=== PATIENT | female | born 1975 | race Caucasian/White ===

== ENCOUNTER 2017-03-27 07:41 | Emergency (ER) | payer OTHER ==
--- NOTE | 2017-03-27 11:00 | ED CLINICAL REPORT ---
Clinical Report - Physicians/Mid Levels [facility] [address] [place] [address] 03/27/2017 7:43 Patient: CASSANDRA MATAMOROS Time Seen: 08:14; initial patient contact. Arrived- By private vehicle. Historian- patient. HISTORY OF PRESENT ILLNESS Chief Complaint: SKIN RASH. This started about 2 days ago and is still present. It was gradual in onset and has been constant. Not itchy. It is described as painful and burning. It has been located on the left leg and ankle. No cause has been identified. She had a recent insect bite. No recent medication. Was not recently exposed to poison primitivo. Similar symptoms previously: None. Recent medical care: Not recently seen/assessed. REVIEW OF SYSTEMS Last normal menstrual period now. No fever, chills, cough, difficulty breathing or nausea. No vomiting, chills, fever, sweats or abdominal pain. No constipation, diarrhea, nausea, vomiting or urinary problems. All systems otherwise negative, except as recorded above. PAST HISTORY Dental Abscess. Dental Pain. Immunizations. Multiple Sclerosis. Muscle Spasm. Fibromyalgia. Vomiting. Migraine Headache. Asthma. Bursitis. SURGERIES: . Eye. Tonsillectomy & Adenoidectomy. Tubal Ligation. SOCIAL HISTORY Current every day smoker. No alcohol use or drug use. FAMILY HISTORY she has family members who have had MRSA. ADDITIONAL NOTES The nursing notes have been reviewed. PHYSICAL EXAM Vital Signs: 03/27/2017 08:11 BP: 151/107. HR: 90. RR: 18. O2 saturation: 100%. Temp: 98.3 F. Pain level now: 1010. Have been reviewed. Hypertensive. Heart rate normal. Respiratory rate normal. Temperature normal. Oxygen saturation normal. Appearance: Alert. Oriented X3. No acute distress. ENT: Pharynx normal. CVS: Normal heart rate and rhythm. Heart sounds normal. Respiratory: No respiratory distress. Breath sounds normal. Skin: Medium area of cellulitis with tenderness, erythema and warmth. (2 lateral left lower extremity insect bites). Extremities: 2+ pitting edema of the left lower extremity involving the lower leg. Neuro: Oriented X 3. LABS, X-RAYS, AND EKG Laboratory Tests: UA-Culture if indicated: (PRACHI: 03/27/2017 09:45) ( [facility] 03/27/2017 10:09) Final results Test Result Flag Units (Reference) URINE COLOR YELLOW URINE APPEARANCE CLEAR URINE GLUCOSE NEGATIVE (NEGATIVE) URINE BILIRUBIN NEGATIVE (NEGATIVE) URINE KETONE NEGATIVE (NEGATIVE) URINE SPECIFIC GRAVITY 1.020 (1.010-1.030) URINE PH 6.0 (5.0-8.0) URINE PROTEIN NEGATIVE (NEGATIVE) URINE UROBILINOGEN 0.2 EU/dL (0.2-1.0) URINE NITRITE NEGATIVE (NEGATIVE) URINE BLOOD 3+ (NEGATIVE) URINE LEUK ESTERASE NEGATIVE (NEGATIVE) URINE RBC 10-25 rbc/hpf (0-1) URINE WBC 0-1 wbc/hpf (0-1) URINE EPITHELIAL CELLS 0-1 EPI/hpf (0-5) URINE BACTERIA TRACE (<1+) (NONE SEEN) URINE COMMENT CULT NOT INDICATED URINE CULTURES ARE SET-UP BASED ON THE FOLLOWING CRITERIA:POSITIVE NITRITEPOSITIVE LEUKOCYTE ESTERASEGREATER THAN 10 WHITE BLOOD CELLSMODERATE (2+) OR GREATER BACTERIA Urine: (PRACHI: 03/27/2017 09:45) ( [facility] 03/27/2017 09:58) Final results Test Result Flag Units (Reference) URINE NEGATIVE CBC w Diff: (PRACHI: 03/27/2017 10:05) ( [facility] 03/27/2017 10:23) Final results Test Result Flag Units (Reference) WHITE BLOOD COUNT 9.6 K/uL (4.5-11.5) RED BLOOD COUNT 4.50 M/uL (4.00-5.20) HEMOGLOBIN 12.1 gm/dL (12.0-16.0) HEMATOCRIT 36.9 % (36.0-46.0) MEAN CELL VOLUME 82 fL (80-100) MEAN CORPUSCULAR HGB 27 pg (26-34) MEAN CORPUSCULAR HGB CONC 33 g/dL (31-37) RED CELL DISTRIBUTION WIDTH 15.2 H % (11.6-14.8) PLATELET COUNT 187 K/uL (150-400) NEUTROPHIL % 55.0 % (50-75) LYMPH % 31.6 % (25-40) MONO % 6.3 % (3-14) EOSINOPHIL % 5.6 H % (0-4) BASOPHIL % 1.5 % (0-2) [id number]: (PRACHI: 03/27/2017 10:05) ( MsgRcvd 03/27/2017 10:36) Final results Test Result Flag Units (Reference) D-DIMER QUANTITATIVE 0.52 ug/mLFEU (0.27-0.52) The primary value of this quantitative assay relates toits negative predictive value (i.e. exclusion) of pulmonaryembolism/deep vein thrombosis/DIC.Elevated levels of d-dimer may also occur with:, age, cancer, inflammation, liver disease,post-op, infection, hematoma, coronary disease, peripheralarteriopathy, bleeding disorders and thrombolytic treatment.Results should be correlated with other clinical andradiological data.Testing Methodology: Latex Immunoassay Urine Drug Screen: (PRACHI: 03/27/2017 09:45) ( MsgRcvd 03/27/2017 10:08) Final results Test Result Flag Units (Reference) AMPHETAMINE/METHAMPHETAMINE POSITIVE H (NEGATIVE) BARBITURATE NEGATIVE (NEGATIVE) BENZODIAZEPINE NEGATIVE (NEGATIVE) CANNABINOID NEGATIVE (NEGATIVE) COCAINE NEGATIVE (NEGATIVE) ECSTASY POSITIVE H (NEGATIVE) METHADONE NEGATIVE (NEGATIVE) OPIATE NEGATIVE (NEGATIVE) The urine drug screen is a qualitative screening test fordrug overdose and abuse. All screen results should beconsidered as presumptive.Drugs screened for are as follows:BenzodiazepinesCocaineAmphetamines/MetamphetaminesTHC (Tetrahydrocannabinol)OpiatesBarbituratesEcstasyMethadonePositive results are unconfirmed. For confirmation, notifythe lab for the specimen to be sent to the reference lab.All confirmations must be performed by a differentmethodology.The ingestion of natural herbal and plant productscontaining Ephedra/Ephedra metabolites can produce in urineone or more substances capable of cross reacting withamphetamine/methamphetamine immunoassays. These testsprovide a preliminary result only. A more specificalternative chemical method must be used to obtain aconfirmed analytical result. BNP: (PRACHI: 03/27/2017 10:05) ( MsgRcvd 03/27/2017 10:48) Final results Test Result Flag Units (Reference) B-TYPE NATRIURETIC PEPTIDE 14.9 pg/ml (5-100) CMP: (PRACHI: 03/27/2017 10:05) ( MsgRcvd 03/27/2017 10:32) Final results Test Result Flag Units (Reference) GLUCOSE 108 mg/dL (70-110) BUN 16 mg/dL (7-18) CREATININE 0.8 mg/dL (0.6-1.3) Estimated GFR >60 mL/min Estimated GFR- >60 mL/min Note: Persistent reduction over 3 months in eGFR<60 mL/min/1.73 m2 defines CKD. Patients with eGFR values>=60 mL/min/1.73 m2 may also have CKD if evidence ofpersistent proteinuria. Additional information may be foundat www.kidney.org. SODIUM 139 mmol/L (136-145) POTASSIUM 3.7 mmol/L (3.5-5.1) CHLORIDE 105 mmol/L (98-107) CARBON DIOXIDE 24 mmol/L (21-32) CALCIUM 8.4 L mg/dL (8.5-10.1) TOTAL PROTEIN 7.1 g/dL (6.4-8.2) ALBUMIN 3.8 g/dL (3.3-5.0) BILIRUBIN, TOTAL 0.4 mg/dL (0.0-1.0) ALKALINE PHOSPHATASE 80 U/L (46-116) AST (SGOT) 16 U/L (15-37) ALT (SGPT) 23 U/L (12-78) . PROGRESS AND PROCEDURES Course of Care: Patient is stable. Patient/family counseled in person. during the review of the patient's labs with her. She did acknowledge that she "ate" some methamphetamine 2 days ago. She says that this is not a regular occurrence and that she has never had any IVDU. Old medical records ordered. Disposition: Discharged. Condition: stable. CLINICAL IMPRESSION Cellulitis of the left lower leg. Multiple mosquito bites to the left lower leg. Left. Substance abuse- methamphetamines. INSTRUCTIONS Elevate affected areas above chest level until better. Warnings: Further evaluation is necessary. GENERAL WARNINGS: Return or contact your physician immediately if your condition worsens or changes unexpectedly, if not improving as expected, or if other problems arise. Prescription Medications: Bactrim DS 800 mg / 160 mg: take 2 tablets orally every 12 hours for 10 days. No refill. Substitution is permissible. Diflucan 150 mg tablets: initially take 1 tablet orally for 1 day. No refill. Substitution is permissible. (take this after you have completed your course of trimethoprim / sulfamethoxazole) OTC Medications: Motrin (available over the counter): take according to label instructions. Understanding of the discharge instructions verbalized by patient. Follow-up with: [facility], , , [address], [facility], [id number] Follow up tomorrow. Call for an appointment. (Electronically signed by Patrice York MD 03/27/2017 17:42)
--- NOTE | 2017-03-27 11:00 | ED NURSING NOTES ---
Clinical Report - Nurses [facility] [address] [place] [address] 03/27/2017 7:43 Patient: CASSANDRA MATAMOROS TRIAGE Triage time 08:12. Acuity: LEVEL 3. Chief Complaint: SPIDER BITE and BEE STING. SEPSIS SCREEN: Sepsis Screen. Negative (no infection suspected/documented). --08:19 Jazmin Julien R.N. 08:11 03/27/17. BP: 151/107. HR: 90. RR: 18. O2 saturation: 100%. Temp: 98.3 F. Pain level now: 06/24. --08:19 Jazmin Julien R.N. Weight: 86.1 kg stated. Height/Length: 69 inches Per Patient. BMI: 28.1. --08:17 Jazmin Julien R.N. Medications Unknown. --12:28 Jazmin Julien R.N. Allergies No Known Drug Allergy. --12:28 Jazmin Julien R.N. History Arrived by private vehicle. Historian: patient. Primary physician (No PCP). 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 Location of injuries: right foot and left foot. This occurred at an unknown time. She has had redness, swelling, fever, difficulty breathing and a skin rash. She has had itching and dizziness. Treatment EMISSIONS ENGINEER: None. PAST MEDICAL HX: Tetanus status: unknown. Immunizations: status is unknown. Last normal menstrual period- currently on her period. ( States she has very heavy bleeding when menstruating and has seen large clots). SOCIAL HX: Heavy tobacco smoker- less than 1 pack per day. No alcohol use or drug use. No infectious disease exposure. SELF HARM ASSESSMENT: A self harm assessment was performed. The patient answered "no" to the question "Do you have thoughts of harming or killing yourself?". FALL RISK ASSESSMENT: Fall risk assessment completed. No fall risk identified. NUTRITIONAL RISK ASSESSMENT: The nutritional risk assessment revealed no deficiencies. FUNCTIONAL ASSESSMENT: Functional assessment: no impairments noted. LEARNING NEEDS ASSESSMENT: The learning needs assessment revealed no barriers. ABUSE ASSESSMENT: Abuse assessment: ("Yes") The patient was asked "Do you feel safe in your home?". SKIN INTEGRITY ASSESSMENT: Skin integrity risk assessment completed. No skin integrity risk identified. --08:19 Jazmin Julien R.N. PAST MEDICAL HX: ( Dad has gout and she thinks she might have it, or thinks she is maybe diabetic). --08:22 Jazmin Julien R.N. SOCIAL HX: History of drug use: marijuana. --08:23 Jazmin Julien R.N. SOCIAL HX: ( Pt now states that she has done drugs in the past but hasn't done anything other than marijuana recently). --08:24 Jazmin Julien R.N. PROBLEMS: Dental Abscess. Dental Pain. Immunizations. Multiple Sclerosis. Muscle Spasm. Fibromyalgia. Vomiting. Migraine Headache. Asthma. --08:18 Jazmin Julien R.N. Bursitis. --08:21 Jazmin Julien R.N. ADDITIONAL SURGERIES: . Eye. Tonsillectomy & Adenoidectomy. Tubal Ligation. --08:19 Jazmin Julien R.N. Interventions ID band on patient. To room. --08:19 Jazmin Julien R.N. PHYSICAL ASSESSMENT GENERAL / NEURO / PSYCH: Alert. Oriented X 4. Appears anxious. RESPIRATORY: Respirations not labored. CVS: Normal heart rate and rhythm. EXTREMITIES: Right dorsal foot. Left foot, plantar aspect: tenderness and swelling and dorsal foot: tenderness, swelling and erythema. SKIN: Skin is warm and dry. --08:21 Jazmin Julien R.N. GI / : ( She thinks she might have a parasite and wants to have her stool sampled. She examined her stool and thinks she saw something.). --08:23 Jazmin Julien R.N. NURSING PROGRESS NOTES Reassurance given. Patient identifiers checked. Bed placed in lowest position. Brakes of bed on. Patient ready for evaluation- ED physician notified. --08:24 Jazmin Juilen R.N. 08:57 03/27/2017 One (1) unsuccessful IV access attempt including the right antecubital space. Applied bandaid and manual pressure (Was able to get blood return and some blood sent to lab however the pt was screaming and moving all over stating it hurt too bad to leave in. IV removed per pt request.). --09:07 Jazmin Julien R.N. ( Pt repeating herself several times, states she has low platelets and is a very difficult IV stick. Said she had 27 IV starts during a stay in the hospital before.). --09:09 Jazmin Julien R.N. ( urine sent). --09:50 Jazmin Julien R.N. 10:15 03/27/2017 Site #1 started via IV in the right hand with an 22g angiocath, with aseptic technique and good blood return; one attempt. Blood drawn: rainbow set. Labeled in the presence of the patient and sent to the lab. Saline lock flushed with 10 mL saline. --10:15 Maribeth Frank R.N. 10:17 03/27/17. :patient confirmed. Blood samples drawn by nurse ; labeled in presence of the patient: rainbow set. --10:17 Maribeth Frank R.N. DISPOSITION / DISCHARGE 11:36 03/27/2017 Site #1 removed upon discharge. Bandaid applied. --11:36 Jazmin Julien R.N. Condition at departure: unchanged. Discharge instructions provided and reviewed with the patient. Reviewed medication(s) side effects, precautions, dosing and course information. Prescription(s) given to the patient. Reviewed need to stop smoking. Follow up contact number [facility]. Patient verbalized understanding. Written instructions provided in Sinhala. The patient was discharged by the physician endodontic assistant. She was discharged home. She left the Emergency Department ambulatory and via private vehicle. Patient driving. --11:37 Jazmin Julien R.N. 11:35 03/27/17. BP: 148/86. HR: 88. RR: 18. O2 saturation: 100%. Temp: 98.4 F. Pain level now: 06/24. --11:37 Jazmin Julien R.N. <<STRICKEN ENTRY-- Departure time: 1100. --11:37 Jazmin Julien R.N. --END STRIKE>> Correction --11:38 Jazmin Julien R.N. Departure time: 11:38. --11:38 Jazmin Julien R.N. Locked/Released at 03/27/2017 19:36 by Jazmin Julien R.N.
--- NOTE | 2017-03-27 11:00 | ED ORDER SUMMARY ---
..... Patient: CASSANDRA MATAMOROS OrderSheet [facility] VisitID: [id number] [place] [address] 41y, F Registration Date/Time: 03/27/2017 ORDER SHEET Weight: 86.1 kg (stated) Allergies: No Known Drug Allergy GENERAL ORDERS: CBC w Diff Urgent (08:03/27/2017 Arcadio Nobles) (Ack 8:33 PWeiler ER Tech1) (10:12 PWeiler ER Tech1) CMP Urgent (08:03/27/2017 Arcadio Nobles) (Ack 8:33 PWeiler ER Tech1) (10:12 PWeiler ER Tech1) UA-Culture if indicated Urgent (:03/27/2017 Arcadio Nobles) (Ack 8:33 PWeiler ER Tech1) (10:11 PWeiler ER Tech1) BNP Urgent (08:03/27/2017 Arcadio Nobles) (Ack 8:33 PWeiler ER Tech1) (10:12 PWeiler ER Tech1) D-Dimer Urgent (08:03/27/2017 Arcadio Nobles) (Ack 8:33 PWeiler ER Tech1) (10:12 PWeiler ER Tech1) Urine Urgent (08:03/27/2017 Arcadio Nobles) (Ack 8:33 PWeiler ER Tech1) (10:11 PWeiler ER Tech1) Urine Drug Screen Urgent (:03/27/2017 Arcadio Nobles) (Ack 8:33 PWeiler ER Tech1) (10:11 PWeiler ER Tech1) MEDICATION ORDERS: IV FLUIDS: IV Saline Lock (:03/27/2017 Arcadio Nobles) (Ack 8:41 Nitish Braxton) ORDER SHEET NOTES: [Electronically signed by Patrice York MD (17:42 03/27/2017)] [Electronically signed by Jazmin Julien R.N. (19:36 03/27/2017)] [Electronically locked/signed by Jazmin Julien R.N. (19:36 03/27/2017)]
--- NOTE | 2017-03-27 11:00 | ED CLINICAL REPORT ---
Clinical Report - Physicians/Mid Levels [facility] [address] [place] [address] 03/27/2017 7:43 Patient: CASSANDRA MATAMOROS Time Seen: 08:14; initial patient contact. Arrived- By private vehicle. Historian- patient. HISTORY OF PRESENT ILLNESS Chief Complaint: SKIN RASH. This started about 2 days ago and is still present. It was gradual in onset and has been constant. Not itchy. It is described as painful and burning. It has been located on the left leg and ankle. No cause has been identified. She had a recent insect bite. No recent medication. Was not recently exposed to poison primitivo. Similar symptoms previously: None. Recent medical care: Not recently seen/assessed. REVIEW OF SYSTEMS Last normal menstrual period now. No fever, chills, cough, difficulty breathing or nausea. No vomiting, chills, fever, sweats or abdominal pain. No constipation, diarrhea, nausea, vomiting or urinary problems. All systems otherwise negative, except as recorded above. PAST HISTORY Dental Abscess. Dental Pain. Immunizations. Multiple Sclerosis. Muscle Spasm. Fibromyalgia. Vomiting. Migraine Headache. Asthma. Bursitis. SURGERIES: . Eye. Tonsillectomy & Adenoidectomy. Tubal Ligation. SOCIAL HISTORY Current every day smoker. No alcohol use or drug use. FAMILY HISTORY she has family members who have had MRSA. ADDITIONAL NOTES The nursing notes have been reviewed. PHYSICAL EXAM Vital Signs: 03/27/2017 08:11 BP: 151/107. HR: 90. RR: 18. O2 saturation: 100%. Temp: 98.3 F. Pain level now: 1010. Have been reviewed. Hypertensive. Heart rate normal. Respiratory rate normal. Temperature normal. Oxygen saturation normal. Appearance: Alert. Oriented X3. No acute distress. ENT: Pharynx normal. CVS: Normal heart rate and rhythm. Heart sounds normal. Respiratory: No respiratory distress. Breath sounds normal. Skin: Medium area of cellulitis with tenderness, erythema and warmth. (2 lateral left lower extremity insect bites). Extremities: 2+ pitting edema of the left lower extremity involving the lower leg. Neuro: Oriented X 3. LABS, X-RAYS, AND EKG Laboratory Tests: UA-Culture if indicated: (PRACHI: 03/27/2017 09:45) ( [facility] 03/27/2017 10:09) Final results Test Result Flag Units (Reference) URINE COLOR YELLOW URINE APPEARANCE CLEAR URINE GLUCOSE NEGATIVE (NEGATIVE) URINE BILIRUBIN NEGATIVE (NEGATIVE) URINE KETONE NEGATIVE (NEGATIVE) URINE SPECIFIC GRAVITY 1.020 (1.010-1.030) URINE PH 6.0 (5.0-8.0) URINE PROTEIN NEGATIVE (NEGATIVE) URINE UROBILINOGEN 0.2 EU/dL (0.2-1.0) URINE NITRITE NEGATIVE (NEGATIVE) URINE BLOOD 3+ (NEGATIVE) URINE LEUK ESTERASE NEGATIVE (NEGATIVE) URINE RBC 10-25 rbc/hpf (0-1) URINE WBC 0-1 wbc/hpf (0-1) URINE EPITHELIAL CELLS 0-1 EPI/hpf (0-5) URINE BACTERIA TRACE (<1+) (NONE SEEN) URINE COMMENT CULT NOT INDICATED URINE CULTURES ARE SET-UP BASED ON THE FOLLOWING CRITERIA:POSITIVE NITRITEPOSITIVE LEUKOCYTE ESTERASEGREATER THAN 10 WHITE BLOOD CELLSMODERATE (2+) OR GREATER BACTERIA Urine: (PRACHI: 03/27/2017 09:45) ( [facility] 03/27/2017 09:58) Final results Test Result Flag Units (Reference) URINE NEGATIVE CBC w Diff: (PRACHI: 03/27/2017 10:05) ( [facility] 03/27/2017 10:23) Final results Test Result Flag Units (Reference) WHITE BLOOD COUNT 9.6 K/uL (4.5-11.5) RED BLOOD COUNT 4.50 M/uL (4.00-5.20) HEMOGLOBIN 12.1 gm/dL (12.0-16.0) HEMATOCRIT 36.9 % (36.0-46.0) MEAN CELL VOLUME 82 fL (80-100) MEAN CORPUSCULAR HGB 27 pg (26-34) MEAN CORPUSCULAR HGB CONC 33 g/dL (31-37) RED CELL DISTRIBUTION WIDTH 15.2 H % (11.6-14.8) PLATELET COUNT 187 K/uL (150-400) NEUTROPHIL % 55.0 % (50-75) LYMPH % 31.6 % (25-40) MONO % 6.3 % (3-14) EOSINOPHIL % 5.6 H % (0-4) BASOPHIL % 1.5 % (0-2) [id number]: (PRACHI: 03/27/2017 10:05) ( MsgRcvd 03/27/2017 10:36) Final results Test Result Flag Units (Reference) D-DIMER QUANTITATIVE 0.52 ug/mLFEU (0.27-0.52) The primary value of this quantitative assay relates toits negative predictive value (i.e. exclusion) of pulmonaryembolism/deep vein thrombosis/DIC.Elevated levels of d-dimer may also occur with:, age, cancer, inflammation, liver disease,post-op, infection, hematoma, coronary disease, peripheralarteriopathy, bleeding disorders and thrombolytic treatment.Results should be correlated with other clinical andradiological data.Testing Methodology: Latex Immunoassay Urine Drug Screen: (PRACHI: 03/27/2017 09:45) ( MsgRcvd 03/27/2017 10:08) Final results Test Result Flag Units (Reference) AMPHETAMINE/METHAMPHETAMINE POSITIVE H (NEGATIVE) BARBITURATE NEGATIVE (NEGATIVE) BENZODIAZEPINE NEGATIVE (NEGATIVE) CANNABINOID NEGATIVE (NEGATIVE) COCAINE NEGATIVE (NEGATIVE) ECSTASY POSITIVE H (NEGATIVE) METHADONE NEGATIVE (NEGATIVE) OPIATE NEGATIVE (NEGATIVE) The urine drug screen is a qualitative screening test fordrug overdose and abuse. All screen results should beconsidered as presumptive.Drugs screened for are as follows:BenzodiazepinesCocaineAmphetamines/MetamphetaminesTHC (Tetrahydrocannabinol)OpiatesBarbituratesEcstasyMethadonePositive results are unconfirmed. For confirmation, notifythe lab for the specimen to be sent to the reference lab.All confirmations must be performed by a differentmethodology.The ingestion of natural herbal and plant productscontaining Ephedra/Ephedra metabolites can produce in urineone or more substances capable of cross reacting withamphetamine/methamphetamine immunoassays. These testsprovide a preliminary result only. A more specificalternative chemical method must be used to obtain aconfirmed analytical result. BNP: (PRACHI: 03/27/2017 10:05) ( MsgRcvd 03/27/2017 10:48) Final results Test Result Flag Units (Reference) B-TYPE NATRIURETIC PEPTIDE 14.9 pg/ml (5-100) CMP: (PRACHI: 03/27/2017 10:05) ( MsgRcvd 03/27/2017 10:32) Final results Test Result Flag Units (Reference) GLUCOSE 108 mg/dL (70-110) BUN 16 mg/dL (7-18) CREATININE 0.8 mg/dL (0.6-1.3) Estimated GFR >60 mL/min Estimated GFR- >60 mL/min Note: Persistent reduction over 3 months in eGFR<60 mL/min/1.73 m2 defines CKD. Patients with eGFR values>=60 mL/min/1.73 m2 may also have CKD if evidence ofpersistent proteinuria. Additional information may be foundat www.kidney.org. SODIUM 139 mmol/L (136-145) POTASSIUM 3.7 mmol/L (3.5-5.1) CHLORIDE 105 mmol/L (98-107) CARBON DIOXIDE 24 mmol/L (21-32) CALCIUM 8.4 L mg/dL (8.5-10.1) TOTAL PROTEIN 7.1 g/dL (6.4-8.2) ALBUMIN 3.8 g/dL (3.3-5.0) BILIRUBIN, TOTAL 0.4 mg/dL (0.0-1.0) ALKALINE PHOSPHATASE 80 U/L (46-116) AST (SGOT) 16 U/L (15-37) ALT (SGPT) 23 U/L (12-78) . PROGRESS AND PROCEDURES Course of Care: Patient is stable. Patient/family counseled in person. during the review of the patient's labs with her. She did acknowledge that she "ate" some methamphetamine 2 days ago. She says that this is not a regular occurrence and that she has never had any IVDU. Old medical records ordered. Disposition: Discharged. Condition: stable. CLINICAL IMPRESSION Cellulitis of the left lower leg. Multiple mosquito bites to the left lower leg. Left. Substance abuse- methamphetamines. INSTRUCTIONS Elevate affected areas above chest level until better. Warnings: Further evaluation is necessary. GENERAL WARNINGS: Return or contact your physician immediately if your condition worsens or changes unexpectedly, if not improving as expected, or if other problems arise. Prescription Medications: Bactrim DS 800 mg / 160 mg: take 2 tablets orally every 12 hours for 10 days. No refill. Substitution is permissible. Diflucan 150 mg tablets: initially take 1 tablet orally for 1 day. No refill. Substitution is permissible. (take this after you have completed your course of trimethoprim / sulfamethoxazole) OTC Medications: Motrin (available over the counter): take according to label instructions. Understanding of the discharge instructions verbalized by patient. Follow-up with: [facility], , , [address], [facility], [id number] Follow up tomorrow. Call for an appointment. (Electronically signed by Patrice York MD 03/27/2017 17:42)
--- NOTE | 2017-03-27 11:00 | ED ORDER SUMMARY ---
..... Patient: CASSANDRA MATAMOROS OrderSheet [facility] VisitID: [id number] [place] [address] 41y, F Registration Date/Time: 03/27/2017 ORDER SHEET Weight: 86.1 kg (stated) Allergies: No Known Drug Allergy GENERAL ORDERS: CBC w Diff Urgent (08:03/27/2017 Arcadio Nobles) (Ack 8:33 [facility]We[facility] ER Tech1) (10:12 PWeiler ER Tech1) CMP Urgent (08:03/27/2017 Arcadio Nobles) (Ack 8:33 PWeiler ER Tech1) (10:12 PWeiler ER Tech1) UA-Culture if indicated Urgent (:03/27/2017 Arcadio Nobles) (Ack 8:33 PWe[facility] ER Tech1) (10:11 PWeiler ER Tech1) BNP Urgent (08:03/27/2017 Arcadio Nobles) (Ack 8:33 PWeiler ER Tech1) (10:12 PWeiler ER Tech1) D-Dimer Urgent (08:03/27/2017 Arcadio Nobles) (Ack 8:33 P[facility] ER Tech1) (10:12 PWeiler ER Tech1) Urine Urgent (08:03/27/2017 Arcadio Nobles) (Ack 8:33 PWeiler ER Tech1) (10:11 PWeiler ER Tech1) Urine Drug Screen Urgent (:03/27/2017 Arcadio Nobles) (Ack 8:33 PWeiler ER Tech1) (10:11 PWeiler ER Tech1) MEDICATION ORDERS: IV FLUIDS: IV Saline Lock (:03/27/2017 Arcadio Nobles) (Ack 8:41 Nitish Braxton) ORDER SHEET NOTES: [Electronically signed by Patrice York MD (17:42 03/27/2017)] [Electronically signed by Jazmin Julien R.N. (19:36 03/27/2017)] [Electronically locked/signed by Jazmin Julien R.N. (19:36 03/27/2017)]
--- NOTE | 2017-03-27 19:36 | ED DISCHARGE INSTRUCTIONS ---
Patient: CASSANDRA MATAMOROS General Instructions [facility] VisitID: [id number] [address] [place] [address] 41y, F Registration Date/Time: 03/27/2017 Cellulitis of the left lower leg. Multiple mosquito bites to the left lower leg. Left. Substance abuse- methamphetamines. INSTRUCTIONS Elevate affected areas above chest level until better. Warnings: Further evaluation is necessary. GENERAL WARNINGS: Return or contact your physician immediately if your condition worsens or changes unexpectedly, if not improving as expected, or if other problems arise. Prescription Medications: Bactrim DS 800 mg / 160 mg: take 2 tablets orally every 12 hours for 10 days. No refill. Substitution is permissible. Diflucan 150 mg tablets: initially take 1 tablet orally for 1 day. No refill. Substitution is permissible. (take this after you have completed your course of trimethoprim / sulfamethoxazole) OTC Medications: Motrin (available over the counter): take according to label instructions. Understanding of the discharge instructions verbalized by patient. Follow-up with: [facility], , , [address], [facility], [id number] Follow up tomorrow. Call for an appointment. ADDITIONAL INFORMATION Cellulitis You have an infection of the skin known as cellulitis. This usually starts with a scrape, cut, insect bite, blister or other opening in the skin which becomes infected. This is a serious condition. It must be watched closely to be sure the infection is not spreading. With antibiotic treatment, the size of the red area will gradually shrink in size until the skin returns to normal. This will take 7-10 days. The red area should never increase in size once the antibiotic medicine has been started. Occasionally, an infection will be resistant to one antibiotic and another one will have to be used. Home Care: 1) Limit the use of the affected part, since excess movement can cause the infection to spread. 2) If the infection is on your leg, walk as little as possible during the first few days of the treatment. Keep your leg elevated while sitting. This will reduce swelling. 3) Take all of the antibiotic medicine exactly as directed until it is gone. Be careful not to miss any doses, especially during the first seven days. Follow Up with your doctor or this facility as directed. Check the infected area daily for the warning signs listed below. Get Prompt Medical Attention if any of the following occur: -- Spreading area of redness -- Increasing swelling or pain -- Appearance of pus or drainage -- Fever over 100.4 F (38.0 C) oral, or over 101.4 F (38.6 C) rectal, after two days on antibiotics Mosquito Bite You have been stung or bitten by a mosquito. Mosquitoes come in many sizes and colors. It is only the female mosquito that bites people. They need blood in order to lay their eggs. When a mosquito bites you, it is pushing a needle-like mouth part into your skin. Then it injects some saliva (spit) before sucking your blood. It is the mosquito saliva that causes the local reaction you are having. There may be redness, swelling and itching. Some people are more sensitive to mosquito bites than others and may get dizziness and weakness. Home Care: Wash the area with soap and water once a day. Watch for any signs of infection (below). If itching is a problem, you may use an dwlv-mde-fzzychu anti-itch spray or cream (Lanacaine, sunburn sprays or any other medicine with benzocaine in it).You may also apply an ice pack (ice cubes in a plastic bag, wrapped in a towel) over the bite area for 20 minutes every few hours as needed for the relief of pain, itching or swelling. Oral Benadryl (diphenhydramine) is an antihistamine available at drug and grocery stores. Unless a prescription antihistamine was given, Benadryl may be used to reduce itching if there are multiple bites. Use lower doses during the daytime and higher doses at bedtime since the drug may make you sleepy. [NOTE: Do not use Benadryl if you have glaucoma or if you are a man with trouble urinating due to an enlarged prostate.] Claritin (loratidine) is an antihistamine that causes less drowsiness and is a good alternative for daytime use. You may use acetaminophen (Tylenol) or ibuprofen (Motrin, Advil) to control pain, unless another pain medicine was prescribed. [NOTE: If you have chronic liver or kidney disease or ever had a stomach ulcer or GI bleeding, talk with your doctor before using these medicines.] Avoiding Mosquito Bites These are things you can do to prevent mosquito bites: Avoid being outside when mosquitoes are most active (apron operator, late afternoon and early evening). If you are outdoors when mosquitoes are active, wear socks, long sleeves, long pants and use insect repellent. The most effective insect repellent is DEET (10-30%). Children should not use more than 10% strength. Do not use on infants and women. You can spray your clothing with a repellent containing DEET or permethrin. If you do this, you do not need to put repellent on the skin under clothing that has been sprayed. Mosquitoes lay their eggs in standing water. Remove breeding areas around your home. Dispose of cans, containers and tires that may collect water. Clear your roof gutters and be sure they drain properly. Keep window and door screens in good repair. Follow Up with your doctor or as advised by our staff. Get Prompt Medical Attention if any of the following occur: Shortness of breath or difficulty breathing Dizziness, weakness or fainting Headache, fever, chills, muscle or joint aching, vomiting New rash Signs of infection: Spreading redness Increased pain or swelling Fever of 100.4F (38C) or higher, or as directed by your healthcare provider Colored fluid draining from the wound Sulfamethoxazole, Trimethoprim Oral tablet What is this medicine? SULFAMETHOXAZOLE; TRIMETHOPRIM or SMX-TMP (suhl fuh meth OK bismark zohl; trye METH oh prim) is a combination of a sulfonamide antibiotic and a second antibiotic, trimethoprim. It is used to treat or prevent certain kinds of bacterial infections. It will not work for colds, flu, or other viral infections. How should I use this medicine? Take this medicine by mouth with a full glass of water. Follow the directions on the prescription label. Take your medicine at regular intervals. Do not take it more often than directed. Do not skip doses or stop your medicine early. Talk to your assembler for puller over machine regarding the use of this medicine in children. Special care may be needed. This medicine has been used in children as young as 2 months of age. What side effects may I notice from receiving this medicine? Side effects that you should report to your doctor or health residential care facility manager as soon as possible: allergic reactions like skin rash or hives, swelling of the face, lips, or tongue breathing problems fever or chills, sore throat irregular heartbeat, chest pain joint or muscle pain pain or difficulty passing urine red pinpoint spots on skin redness, blistering, peeling or loosening of the skin, including inside the mouth unusual bleeding or bruising unusually weak or tired yellowing of the eyes or skin Side effects that usually do not require medical attention (report to your doctor or health residential care facility manager if they continue or are bothersome): diarrhea dizziness headache loss of appetite nausea, vomiting nervousness What may interact with this medicine? Do not take this medicine with any of the following medications: aminobenzoate potassium dofetilide metronidazole This medicine may also interact with the following medications: DIANNE inhibitors like benazepril, enalapril, lisinopril, and ramipril cyclosporine digoxin diuretics indomethacin medicines for diabetes methenamine methotrexate phenytoin potassium supplements pyrimethamine sulfinpyrazone tricyclic antidepressants warfarin What if I miss a dose? If you miss a dose, take it as soon as you can. If it is almost time for your next dose, take only that dose. Do not take double or extra doses. Where should I keep my medicine? Keep out of the reach of children. Store at room temperature between 20 to 25 degrees C (68 to 77 degrees F). Protect from light. Throw away any unused medicine after the expiration date. What should I tell my health care provider before I take this medicine? They need to know if you have any of these conditions: anemia asthma being treated with anticonvulsants if you frequently drink alcohol containing drinks kidney disease liver disease low level of folic acid or nzsvohd-[id number] dehydrogenase poor nutrition or malabsorption porphyria severe allergies thyroid disorder an unusual or allergic reaction to sulfamethoxazole, trimethoprim, sulfa drugs, other medicines, foods, dyes, or preservatives or trying to get breast-feeding What should I watch for while using this medicine? Tell your doctor or health residential care facility manager if your symptoms do not improve. Drink several glasses of water a day to reduce the risk of kidney problems. Do not treat diarrhea with over the counter products. Contact your doctor if you have diarrhea that lasts more than 2 days or if it is severe and watery. This medicine can make you more sensitive to the sun. Keep out of the sun. If you cannot avoid being in the sun, wear protective clothing and use a sunscreen. Do not use sun lamps or tanning beds/booths. Fluconazole Oral tablet What is this medicine? FLUCONAZOLE (floo MANDI na zole) is an antifungal medicine. It is used to treat certain kinds of fungal or yeast infections. How should I use this medicine? Take this medicine by mouth. Follow the directions on the prescription label. Do not take your medicine more often than directed. Talk to your assembler for puller over machine regarding the use of this medicine in children. Special care may be needed. This medicine has been used in children as young as 6 months of age. What side effects may I notice from receiving this medicine? Side effects that you should report to your doctor or health residential care facility manager as soon as possible: allergic reactions like skin rash or itching, hives, swelling of the lips, mouth, tongue, or throat dark urine feeling dizzy or faint irregular heartbeat or chest pain redness, blistering, peeling or loosening of the skin, including inside the mouth trouble breathing unusual bruising or bleeding vomiting yellowing of the eyes or skin Side effects that usually do not require medical attention (report to your doctor or health residential care facility manager if they continue or are bothersome): changes in how food tastes diarrhea headache stomach upset or nausea What may interact with this medicine? Do not take this medicine with any of the following medications: cisapride pimozide red yeast rice This medicine may also interact with the following medications: control pills cyclosporine diuretics like hydrochlorothiazide medicines for diabetes that are taken by mouth medicines for high cholesterol like atorvastatin, lovastatin or simvastatin phenytoin ramelteon rifabutin rifampin some medicines for anxiety or sleep tacrolimus terfenadine theophylline tofacitinib warfarin What if I miss a dose? If you miss a dose, take it as soon as you can. If it is almost time for your next dose, take only that dose. Do not take double or extra doses. Where should I keep my medicine? Keep out of the reach of children. Store at room temperature below 30 degrees C (86 degrees F). Throw away any medicine after the expiration date. What should I tell my health care provider before I take this medicine? They need to know if you have any of these conditions: electrolyte abnormalities history of irregular heart beat kidney disease an unusual or allergic reaction to fluconazole, other azole antifungals, medicines, foods, dyes, or preservatives or trying to get breast-feeding What should I watch for while using this medicine? Visit your doctor or health residential care facility manager for regular checkups. If you are taking this medicine for a long time you may need blood work. Tell your doctor if your symptoms do not improve. Some fungal infections need many weeks or months of treatment to cure. Alcohol can increase possible damage to your liver. Avoid alcoholic drinks. If you have a vaginal infection, do not have sex until you have finished your treatment. You can wear a sanitary napkin. Do not use tampons. Wear freshly washed cotton, not synthetic, panties. Ibuprofen Oral tablet What is this medicine? IBUPROFEN (eye BYOO proe fen) is a non-steroidal anti-inflammatory drug (NSAID). It is used for dental pain, fever, headaches or migraines, osteoarthritis, rheumatoid arthritis, or painful monthly periods. It can also relieve minor aches and pains caused by a cold, flu, or sore throat. How should I use this medicine? Take this medicine by mouth with a glass of water. Follow the directions on the prescription label. Take this medicine with food if your stomach gets upset. Try to not lie down for at least 10 minutes after you take the medicine. Take your medicine at regular intervals. Do not take your medicine more often than directed. A special MedGuide will be given to you by the pharmacist with each prescription and refill. Be sure to read this information carefully each time. Talk to your assembler for puller over machine regarding the use of this medicine in children. Special care may be needed. What side effects may I notice from receiving this medicine? Side effects that you should report to your doctor or health residential care facility manager as soon as possible: allergic reactions like skin rash, itching or hives, swelling of the face, lips, or tongue black or bloody stools, blood in the urine or in vomit breathing problems changes in vision chest pain general ill feeling or flu-like symptoms nausea or vomiting redness, blistering, peeling or loosening of the skin, including inside the mouth slurred speech or weakness on one side of the body stomach pain unexplained weight gain or swelling unusually weak or tired yellowing of eyes or skin Side effects that usually do not require medical attention (report to your doctor or health residential care facility manager if they continue or are bothersome): constipation or diarrhea dizziness gas or heartburn stomach upset What may interact with this medicine? Do not take this medicine with any of the following medications: cidofovir ketorolac methotrexate pemetrexed This medicine may also interact with the following medications: alcohol aspirin diuretics lithium other drugs for inflammation like prednisone warfarin What if I miss a dose? If you miss a dose, take it as soon as you can. If it is almost time for your next dose, take only that dose. Do not take double or extra doses. Where should I keep my medicine? Keep out of the reach of children. Store at room temperature between 15 and 30 degrees C (59 and 86 degrees F). Keep container tightly closed. Throw away any unused medicine after the expiration date. What should I tell my health care provider before I take this medicine? They need to know if you have any of these conditions: asthma cigarette smoker drink more than 3 alcohol containing drinks a day heart disease or circulation problems such as heart failure or leg edema (fluid retention) high blood pressure kidney disease liver disease stomach bleeding or ulcers an unusual or allergic reaction to ibuprofen, aspirin, other NSAIDS, other medicines, foods, dyes, or preservatives or trying to get breast-feeding What should I watch for while using this medicine? Tell your doctor or healthcare professional if your symptoms do not start to get better or if they get worse. This medicine does not prevent heart attack or stroke. In fact, this medicine may increase the chance of a heart attack or stroke. The chance may increase with longer use of this medicine and in people who have heart disease. If you take aspirin to prevent heart attack or stroke, talk with your doctor or health residential care facility manager. Do not take other medicines that contain aspirin, ibuprofen, or naproxen with this medicine. Side effects such as stomach upset, nausea, or ulcers may be more likely to occur. Many medicines available without a prescription should not be taken with this medicine. This medicine can cause ulcers and bleeding in the stomach and intestines at any time during treatment. Ulcers and bleeding can happen without warning symptoms and can cause . To reduce your risk, do not smoke cigarettes or drink alcohol while you are taking this medicine. You may get drowsy or dizzy. Do not drive, use machinery, or do anything that needs mental alertness until you know how this medicine affects you. Do not stand or sit up quickly, especially if you are an older patient. This reduces the risk of dizzy or fainting spells. This medicine can cause you to bleed more easily. Try to avoid damage to your teeth and gums when you brush or floss your teeth. You have been given the following additional information: Cellulitis Mosquito Bite Sulfamethoxazole, Trimethoprim Oral tablet Fluconazole Oral tablet Ibuprofen Oral tablet (Electronically signed by Patrice York MD 03/27/2017 17:42)
--- NOTE | 2017-03-27 19:36 | ED MAR SUMMARY ---
..... Medication Administration Record [facility] [address] [place], [place] [id number] Patient: CASSANDRA MATAMOROS Visit ID: [id number] 41y, F Weight: 86.1 kg Height/Length: 69 in BMI: 28.1 ALLERGIES: No Known Drug Allergy
--- NOTE | 2017-03-27 19:36 | ED MAR SUMMARY ---
..... Medication Administration Record [facility] [address] [place], [place] [id number] Patient: CASSANDRA MATAMOROS Visit ID: [id number] 41y, F Weight: 86.1 kg Height/Length: 69 in BMI: 28.1 ALLERGIES: No Known Drug Allergy
--- NOTE | 2017-03-27 19:36 | ED MED RECONCILIATION SUMMARY ---
Patient: CASSANDRA MATAMOROS Medication Reconciliation Report [facility] VisitID: [id number] [place] [address] 41y, F Registration Date/Time: 03/27/2017 Weight: 86.1 kg Height/Length: 69 in. BMI: 28.1 ALLERGIES: No Known Drug Allergy The patient's Home Medications are listed below: Unknown. The source(s) of the original Home Medication information: Not obtained. The following Medications were given to the patient in the Emergency Department: None. The following Medications were prescribed to the patient: Motrin (available over the counter): take according to label instructions. -- Patrice York MD Bactrim DS 800 mg / 160 mg: take 2 tablets orally every 12 hours for 10 days. No refill. Substitution is permissible. -- Patrice York MD Diflucan 150 mg tablets: initially take 1 tablet orally for 1 day. No refill. Substitution is permissible.(take this after you have completed your course of trimethoprim / sulfamethoxazole) -- Patrice York MD
--- NOTE | 2017-03-27 19:36 | ED MED RECONCILIATION SUMMARY ---
Patient: CASSANDRA MATAMOROS Medication Reconciliation Report [facility] VisitID: [id number] [place] [address] 41y, F Registration Date/Time: 03/27/2017 Weight: 86.1 kg Height/Length: 69 in. BMI: 28.1 ALLERGIES: No Known Drug Allergy The patient's Home Medications are listed below: Unknown. The source(s) of the original Home Medication information: Not obtained. The following Medications were given to the patient in the Emergency Department: None. The following Medications were prescribed to the patient: Motrin (available over the counter): take according to label instructions. -- Patrice York MD Bactrim DS 800 mg / 160 mg: take 2 tablets orally every 12 hours for 10 days. No refill. Substitution is permissible. -- Patrice York MD Diflucan 150 mg tablets: initially take 1 tablet orally for 1 day. No refill. Substitution is permissible.(take this after you have completed your course of trimethoprim / sulfamethoxazole) -- Patrice York MD
--- NOTE | 2017-03-27 19:36 | ED DISCHARGE INSTRUCTIONS ---
Patient: CASSANDRA MATAMOROS General Instructions [facility] VisitID: [id number] [address] [place] [address] 41y, F Registration Date/Time: 03/27/2017 Cellulitis of the left lower leg. Multiple mosquito bites to the left lower leg. Left. Substance abuse- methamphetamines. INSTRUCTIONS Elevate affected areas above chest level until better. Warnings: Further evaluation is necessary. GENERAL WARNINGS: Return or contact your physician immediately if your condition worsens or changes unexpectedly, if not improving as expected, or if other problems arise. Prescription Medications: Bactrim DS 800 mg / 160 mg: take 2 tablets orally every 12 hours for 10 days. No refill. Substitution is permissible. Diflucan 150 mg tablets: initially take 1 tablet orally for 1 day. No refill. Substitution is permissible. (take this after you have completed your course of trimethoprim / sulfamethoxazole) OTC Medications: Motrin (available over the counter): take according to label instructions. Understanding of the discharge instructions verbalized by patient. Follow-up with: [facility], , , [address], [facility], [id number] Follow up tomorrow. Call for an appointment. ADDITIONAL INFORMATION Cellulitis You have an infection of the skin known as cellulitis. This usually starts with a scrape, cut, insect bite, blister or other opening in the skin which becomes infected. This is a serious condition. It must be watched closely to be sure the infection is not spreading. With antibiotic treatment, the size of the red area will gradually shrink in size until the skin returns to normal. This will take 7-10 days. The red area should never increase in size once the antibiotic medicine has been started. Occasionally, an infection will be resistant to one antibiotic and another one will have to be used. Home Care: 1) Limit the use of the affected part, since excess movement can cause the infection to spread. 2) If the infection is on your leg, walk as little as possible during the first few days of the treatment. Keep your leg elevated while sitting. This will reduce swelling. 3) Take all of the antibiotic medicine exactly as directed until it is gone. Be careful not to miss any doses, especially during the first seven days. Follow Up with your doctor or this facility as directed. Check the infected area daily for the warning signs listed below. Get Prompt Medical Attention if any of the following occur: -- Spreading area of redness -- Increasing swelling or pain -- Appearance of pus or drainage -- Fever over 100.4 F (38.0 C) oral, or over 101.4 F (38.6 C) rectal, after two days on antibiotics Mosquito Bite You have been stung or bitten by a mosquito. Mosquitoes come in many sizes and colors. It is only the female mosquito that bites people. They need blood in order to lay their eggs. When a mosquito bites you, it is pushing a needle-like mouth part into your skin. Then it injects some saliva (spit) before sucking your blood. It is the mosquito saliva that causes the local reaction you are having. There may be redness, swelling and itching. Some people are more sensitive to mosquito bites than others and may get dizziness and weakness. Home Care: Wash the area with soap and water once a day. Watch for any signs of infection (below). If itching is a problem, you may use an [id number] anti-itch spray or cream (Lanacaine, sunburn sprays or any other medicine with benzocaine in it).You may also apply an ice pack (ice cubes in a plastic bag, wrapped in a towel) over the bite area for 20 minutes every few hours as needed for the relief of pain, itching or swelling. Oral Benadryl (diphenhydramine) is an antihistamine available at drug and grocery stores. Unless a prescription antihistamine was given, Benadryl may be used to reduce itching if there are multiple bites. Use lower doses during the daytime and higher doses at bedtime since the drug may make you sleepy. [NOTE: Do not use Benadryl if you have glaucoma or if you are a man with trouble urinating due to an enlarged prostate.] Claritin (loratidine) is an antihistamine that causes less drowsiness and is a good alternative for daytime use. You may use acetaminophen (Tylenol) or ibuprofen (Motrin, Advil) to control pain, unless another pain medicine was prescribed. [NOTE: If you have chronic liver or kidney disease or ever had a stomach ulcer or GI bleeding, talk with your doctor before using these medicines.] Avoiding Mosquito Bites These are things you can do to prevent mosquito bites: Avoid being outside when mosquitoes are most active (pediatric dental hygienist, late afternoon and early evening). If you are outdoors when mosquitoes are active, wear socks, long sleeves, long pants and use insect repellent. The most effective insect repellent is DEET (10-30%). Children should not use more than 10% strength. Do not use on infants and women. You can spray your clothing with a repellent containing DEET or permethrin. If you do this, you do not need to put repellent on the skin under clothing that has been sprayed. Mosquitoes lay their eggs in standing water. Remove breeding areas around your home. Dispose of cans, containers and tires that may collect water. Clear your roof gutters and be sure they drain properly. Keep window and door screens in good repair. Follow Up with your doctor or as advised by our staff. Get Prompt Medical Attention if any of the following occur: Shortness of breath or difficulty breathing Dizziness, weakness or fainting Headache, fever, chills, muscle or joint aching, vomiting New rash Signs of infection: Spreading redness Increased pain or swelling Fever of 100.4F (38C) or higher, or as directed by your healthcare provider Colored fluid draining from the wound Sulfamethoxazole, Trimethoprim Oral tablet What is this medicine? SULFAMETHOXAZOLE; TRIMETHOPRIM or SMX-TMP (suhl fuh meth OK bismark zohl; trye METH oh prim) is a combination of a sulfonamide antibiotic and a second antibiotic, trimethoprim. It is used to treat or prevent certain kinds of bacterial infections. It will not work for colds, flu, or other viral infections. How should I use this medicine? Take this medicine by mouth with a full glass of water. Follow the directions on the prescription label. Take your medicine at regular intervals. Do not take it more often than directed. Do not skip doses or stop your medicine early. Talk to your varnish melter helper regarding the use of this medicine in children. Special care may be needed. This medicine has been used in children as young as 2 months of age. What side effects may I notice from receiving this medicine? Side effects that you should report to your doctor or [facility] as soon as possible: allergic reactions like skin rash or hives, swelling of the face, lips, or tongue breathing problems fever or chills, sore throat irregular heartbeat, chest pain joint or muscle pain pain or difficulty passing urine red pinpoint spots on skin redness, blistering, peeling or loosening of the skin, including inside the mouth unusual bleeding or bruising unusually weak or tired yellowing of the eyes or skin Side effects that usually do not require medical attention (report to your doctor or [facility] if they continue or are bothersome): diarrhea dizziness headache loss of appetite nausea, vomiting nervousness What may interact with this medicine? Do not take this medicine with any of the following medications: aminobenzoate potassium dofetilide metronidazole This medicine may also interact with the following medications: DIANNE inhibitors like benazepril, enalapril, lisinopril, and ramipril cyclosporine digoxin diuretics indomethacin medicines for diabetes methenamine methotrexate phenytoin potassium supplements pyrimethamine sulfinpyrazone tricyclic antidepressants warfarin What if I miss a dose? If you miss a dose, take it as soon as you can. If it is almost time for your next dose, take only that dose. Do not take double or extra doses. Where should I keep my medicine? Keep out of the reach of children. Store at room temperature between 20 to 25 degrees C (68 to 77 degrees F). Protect from light. Throw away any unused medicine after the expiration date. What should I tell my health care provider before I take this medicine? They need to know if you have any of these conditions: anemia asthma being treated with anticonvulsants if you frequently drink alcohol containing drinks kidney disease liver disease low level of folic acid or [id number] dehydrogenase poor nutrition or malabsorption porphyria severe allergies thyroid disorder an unusual or allergic reaction to sulfamethoxazole, trimethoprim, sulfa drugs, other medicines, foods, dyes, or preservatives or trying to get breast-feeding What should I watch for while using this medicine? Tell your doctor or [facility] if your symptoms do not improve. Drink several glasses of water a day to reduce the risk of kidney problems. Do not treat diarrhea with over the counter products. Contact your doctor if you have diarrhea that lasts more than 2 days or if it is severe and watery. This medicine can make you more sensitive to the sun. Keep out of the sun. If you cannot avoid being in the sun, wear protective clothing and use a sunscreen. Do not use sun lamps or tanning beds/booths. Fluconazole Oral tablet What is this medicine? FLUCONAZOLE (floo MANDI na zole) is an antifungal medicine. It is used to treat certain kinds of fungal or yeast infections. How should I use this medicine? Take this medicine by mouth. Follow the directions on the prescription label. Do not take your medicine more often than directed. Talk to your varnish melter helper regarding the use of this medicine in children. Special care may be needed. This medicine has been used in children as young as 6 months of age. What side effects may I notice from receiving this medicine? Side effects that you should report to your doctor or [facility] as soon as possible: allergic reactions like skin rash or itching, hives, swelling of the lips, mouth, tongue, or throat dark urine feeling dizzy or faint irregular heartbeat or chest pain redness, blistering, peeling or loosening of the skin, including inside the mouth trouble breathing unusual bruising or bleeding vomiting yellowing of the eyes or skin Side effects that usually do not require medical attention (report to your doctor or [facility] if they continue or are bothersome): changes in how food tastes diarrhea headache stomach upset or nausea What may interact with this medicine? Do not take this medicine with any of the following medications: cisapride pimozide red yeast rice This medicine may also interact with the following medications: control pills cyclosporine diuretics like hydrochlorothiazide medicines for diabetes that are taken by mouth medicines for high cholesterol like atorvastatin, lovastatin or simvastatin phenytoin ramelteon rifabutin rifampin some medicines for anxiety or sleep tacrolimus terfenadine theophylline tofacitinib warfarin What if I miss a dose? If you miss a dose, take it as soon as you can. If it is almost time for your next dose, take only that dose. Do not take double or extra doses. Where should I keep my medicine? Keep out of the reach of children. Store at room temperature below 30 degrees C (86 degrees F). Throw away any medicine after the expiration date. What should I tell my health care provider before I take this medicine? They need to know if you have any of these conditions: electrolyte abnormalities history of irregular heart beat kidney disease an unusual or allergic reaction to fluconazole, other azole antifungals, medicines, foods, dyes, or preservatives or trying to get breast-feeding What should I watch for while using this medicine? Visit your doctor or [facility] for regular checkups. If you are taking this medicine for a long time you may need blood work. Tell your doctor if your symptoms do not improve. Some fungal infections need many weeks or months of treatment to cure. Alcohol can increase possible damage to your liver. Avoid alcoholic drinks. If you have a vaginal infection, do not have sex until you have finished your treatment. You can wear a sanitary napkin. Do not use tampons. Wear freshly washed cotton, not synthetic, panties. Ibuprofen Oral tablet What is this medicine? IBUPROFEN (eye BYOO proe fen) is a non-steroidal anti-inflammatory drug (NSAID). It is used for dental pain, fever, headaches or migraines, osteoarthritis, rheumatoid arthritis, or painful monthly periods. It can also relieve minor aches and pains caused by a cold, flu, or sore throat. How should I use this medicine? Take this medicine by mouth with a glass of water. Follow the directions on the prescription label. Take this medicine with food if your stomach gets upset. Try to not lie down for at least 10 minutes after you take the medicine. Take your medicine at regular intervals. Do not take your medicine more often than directed. A special MedGuide will be given to you by the pharmacist with each prescription and refill. Be sure to read this information carefully each time. Talk to your varnish melter helper regarding the use of this medicine in children. Special care may be needed. What side effects may I notice from receiving this medicine? Side effects that you should report to your doctor or [facility] as soon as possible: allergic reactions like skin rash, itching or hives, swelling of the face, lips, or tongue black or bloody stools, blood in the urine or in vomit breathing problems changes in vision chest pain general ill feeling or flu-like symptoms nausea or vomiting redness, blistering, peeling or loosening of the skin, including inside the mouth slurred speech or weakness on one side of the body stomach pain unexplained weight gain or swelling unusually weak or tired yellowing of eyes or skin Side effects that usually do not require medical attention (report to your doctor or [facility] if they continue or are bothersome): constipation or diarrhea dizziness gas or heartburn stomach upset What may interact with this medicine? Do not take this medicine with any of the following medications: cidofovir ketorolac methotrexate pemetrexed This medicine may also interact with the following medications: alcohol aspirin diuretics lithium other drugs for inflammation like prednisone warfarin What if I miss a dose? If you miss a dose, take it as soon as you can. If it is almost time for your next dose, take only that dose. Do not take double or extra doses. Where should I keep my medicine? Keep out of the reach of children. Store at room temperature between 15 and 30 degrees C (59 and 86 degrees F). Keep container tightly closed. Throw away any unused medicine after the expiration date. What should I tell my health care provider before I take this medicine? They need to know if you have any of these conditions: asthma cigarette smoker drink more than 3 alcohol containing drinks a day heart disease or circulation problems such as heart failure or leg edema (fluid retention) high blood pressure kidney disease liver disease stomach bleeding or ulcers an unusual or allergic reaction to ibuprofen, aspirin, other NSAIDS, other medicines, foods, dyes, or preservatives or trying to get breast-feeding What should I watch for while using this medicine? Tell your doctor or healthcare professional if your symptoms do not start to get better or if they get worse. This medicine does not prevent heart attack or stroke. In fact, this medicine may increase the chance of a heart attack or stroke. The chance may increase with longer use of this medicine and in people who have heart disease. If you take aspirin to prevent heart attack or stroke, talk with your doctor or [facility] day care center. Do not take other medicines that contain aspirin, ibuprofen, or naproxen with this medicine. Side effects such as stomach upset, nausea, or ulcers may be more likely to occur. Many medicines available without a prescription should not be taken with this medicine. This medicine can cause ulcers and bleeding in the stomach and intestines at any time during treatment. Ulcers and bleeding can happen without warning symptoms and can cause . To reduce your risk, do not smoke cigarettes or drink alcohol while you are taking this medicine. You may get drowsy or dizzy. Do not drive, use machinery, or do anything that needs mental alertness until you know how this medicine affects you. Do not stand or sit up quickly, especially if you are an older patient. This reduces the risk of dizzy or fainting spells. This medicine can cause you to bleed more easily. Try to avoid damage to your teeth and gums when you brush or floss your teeth. You have been given the following additional information: Cellulitis Mosquito Bite Sulfamethoxazole, Trimethoprim Oral tablet Fluconazole Oral tablet Ibuprofen Oral tablet (Electronically signed by Patrice York MD 03/27/2017 17:42)
== END 2017-03-27 11:35 | disposition home or self-care (01) ==
LOC: ED SRH 07:41
DX: L03.116 Cellulitis of left lower limb (principal); S80.862A Insect bite (nonvenomous), left lower leg, initial encounter; W57.XXXA Bitten or stung by nonvenomous insect and other nonvenomous arthropods, initial encounter; Y93.9 Activity, unspecified; Y92.9 Unspecified place or not applicable; Y99.9 Unspecified external cause status; F15.10 Other stimulant abuse, uncomplicated; F17.200 Nicotine dependence, unspecified, uncomplicated; G35 Multiple sclerosis
CPT/HCPCS: 90004; 90100; 91320; 91556; 92760; 92761; 92762; 92763; 92764; 92765; 92766; 92767; 93070; 95059